=== PATIENT | male | born 1990 | race Two or more races ===

== ENCOUNTER 2023-06-10 16:26 | Emergency (ER) | payer BC ==
[~2023-06-10] VITALS: Ht 170.2 cm; Wt 70.0 kg
[~2023-06-10 16:26] MED LIST: AMOCLA875 PO; IBUP600 PO; IBUP800 PO; Norco 5-325 Ta1 EACH PO; RXOXYACE PO; SILSUL1TC TOP
[2023-06-10 17:05] VITALS: BP 134/76
== END 2023-06-10 19:59 | disposition home or self-care (01) ==
LOC: ER 16:26
DX: R20.9 Unspecified disturbances of skin sensation (principal); Z87.891 Personal history of nicotine dependence
CPT/HCPCS: 93926; 99283-25

== ENCOUNTER 2025-09-05 20:49 | Emergency (ER) | payer OTHER ==
[~2025-09-05] VITALS: Ht 170.2 cm; Wt 68.0 kg
[2025-09-05 21:18] LABS: Hematocrit 45.7 % (37.0-53.0); Hemoglobin 15.9 g/dL (13.5-17.5); Mean Corpuscular HGB Conc 34.8 g/dL (31.5-36.5); Mean Corpuscular Volume 92 fL (80-100); NRBC ABSOLUTE 0.00 K/mm3 (0.00-0.02); NRBC Auto 0.0 /100 WBC (0.0-0.2); Platelet Count 227 K/mm3 (150-400); RDW Coefficient Variation 12.4 % (11.7-14.2); RDW Standard Deviation 42.5 fL (35.1-46.3)
[2025-09-05 21:40] LABS: Alanine Aminotransfer (ALT/SGP 44.0 U/L (12-78); Albumin, Blood 3.9 g/dL (3.4-5.0); Albumin/Globulin Ratio 1.0 (0.8-1.8); Anion Gap 10.0 mmol/L (3-11); Aspartate Aminotrans (AST/SGOT 34.0 U/L (12-37); Bilirubin, Total 0.7 mg/dL (0.1-1.0); Blood Urea Nitrogen 5.0 mg/dL (8-24); CO2, Blood 27.0 mmol/L (21-32); Calcium, Blood 9.0 mg/dL (8.5-10.1); Chloride, Blood 104.0 mmol/L (98-108); Creatinine, Blood 0.69 mg/dL (0.60-1.20); Globulin, Blood 3.9 g/dL (2.2-4.0); Glucose, Blood 95.0 mg/dL (70-99); Potassium, Blood 3.6 mmol/L (3.5-5.5); Sodium, Blood 137.0 mmol/L (136-145); Total Protein, Blood 7.8 g/dL (6.4-8.2)
[2025-09-05 21:41] LABS: Source, Urine Clean Catch
[2025-09-05 22:00] LABS: Bilirubin, Urine Neg (Neg); Glucose Qualitative, Urine Neg (Neg); Ketones, Urine Neg (Neg); Leukocyte Esterase, Urine Neg (Neg); Protein, Urine Neg (Neg); Specific Gravity, Urine 1.010 (1.003-1.022); Urobilinogen, Urine NORM (Normal)
[2025-09-05 22:07] LABS: BAND PERCENT MAN 5 % (0-8); BASOPHILS ABSOLUTE MAN 0.06 K/mm3 (0.00-0.23); BASOPHILS PERCENT MAN 1 % (0-2); EOSINOPHILS ABSOLUTE MAN 0.13 K/mm3 (0.00-0.68); EOSINOPHILS PERCENT MAN 2 % (0-6); LYMPHOCYTES % ATYPICAL MANUAL 1 % (0-0); LYMPHOCYTES ABSOLUTE MAN 2.78 K/mm3 (0.84-5.20); LYMPHOCYTES PERCENT MAN 41 % (21-46); MONOCYTES ABSOLUTE MAN 0.86 K/mm3 (0.16-1.47); MONOCYTES PERCENT MAN 13 % (4-13); NEUTROPHILS ABSOLUTE MAN 2.78 K/mm3 (1.96-9.15); SEG NEUTROPHILS PERCENT MAN 37 % (41-73)
[2025-09-05 22:15] LABS: Color, Urine Pale Yellow (P-Yellow)
[2025-09-06] MEDS ORDERED: VALA500 PO (01:54)
[2025-09-06 02:03] VITALS: BP 117/75
[2025-09-06 02:34] LABS: Chlamydia Trachomatis Urine NOT DETECTED (NOT DETECT); Neisseria Gonorrhoea Urine NOT DETECTED (NOT DETECT)
== END 2025-09-06 02:04 | disposition home or self-care (01) ==
LOC: ER 20:49
PROVIDERS: Student in an Organized Health Care Education/Training Program
DX: N50.89 Other specified disorders of the male genital organs (principal); Z87.891 Personal history of nicotine dependence
CPT/HCPCS: 76870; 80053; 81003; 85025; 86592; 87491; 87591; 99284-25